=== PATIENT | male | born 1985 | race Caucasian/White ===

== ENCOUNTER → 2017-12-31 14:26 | Outpatient (CLI) | payer MEDICAID, SELFPAY ==
[2017-12-31 16:17] LABS: ALT 40 U/L (12-78); AST 19 U/L (15-37); Albumin 4.1 g/dL (3.4-5.0); Alkaline Phosphatase 79 U/L (46-116); Anion Gap 13.2 mmol/L (3-11); BUN 13 mg/dL (7-18); Bilirubin, Total 1.1 mg/dL (0.2-1.0); CO2 21.8 mmol/L (21.0-32.0); CREATININE 0.88 mg/dL (0.70-1.30); Calcium 9.1 mg/dL (8.5-10.1); Chloride 105 mmol/L (98-107); Glucose 83 mg/dL (70-100); Potassium 3.9 mmol/L (3.5-5.1); Sodium 140 mmol/L (136-145); Total Protein 7.1 g/dL (6.4-8.2)
[2018-01-02 14:49] LABS: HCV RNA Detection Quantitative Undetected IU/mL (UNDECT)
== END ==
PROVIDERS: PCP Specialist/Technologist Athletic Trainer; Visit Provider Physician Assistant Medical
DX: B18.2 Chronic viral hepatitis C (principal)
CPT/HCPCS: 36415; 80053; 87522

== ENCOUNTER 2018-11-20 14:08 | Outpatient (CLI) | payer SELFPAY ==
[2018-11-20 19:44] LABS: ALT 35 U/L (12-78); AST 19 U/L (15-37); Alkaline Phosphatase 74 U/L (46-116); Anion Gap 10.1 mmol/L (3-11); BUN 10 mg/dL (7-18); Bilirubin, Total 0.8 mg/dL (0.2-1.0); CO2 26.9 mmol/L (21.0-32.0); CREATININE 0.91 mg/dL (0.70-1.30); Calcium 9.2 mg/dL (8.5-10.1); Chloride 107 mmol/L (98-107); Glucose 95 mg/dL (70-100); Potassium 3.8 mmol/L (3.5-5.1); Sodium 144 mmol/L (136-145); Total Protein 6.7 g/dL (6.4-8.2)
[2018-11-21 14:22] LABS: HCV RNA Detection Quantitative Undetected IU/mL (UNDECT)
== END 2018-11-20 14:28 ==
PROVIDERS: PCP Specialist/Technologist Athletic Trainer; Visit Provider Physician Assistant Medical
DX: B18.2 Chronic viral hepatitis C (principal)
CPT/HCPCS: 36415; 80053; 87522

== ENCOUNTER 2021-04-28 17:27 | Inpatient (IN) | payer MEDICAID, SELFPAY ==
[2021-04-28] VITALS (16 sets, daily range): BP systolic 115–139; BP diastolic 80–100; PULSE 92–113; RESP 16–29; TEMP 36.7–37.1; O2SAT 98–100; BMI 27.5
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
[2021-04-28 17:52] LABS: Abs Immature Grans 0.06 10^3/uL (0.0-0.06); Absolute Eosinophil Count 0.03 10^3/uL (0.0-0.7); Absolute Neutrophil Count 12.78 10^3/uL (1.2-6.7); Basophils % 0.2; Eosinophils % 0.2; HCT 41.6 % (40.0-50.0); HGB 14.4 g/dL (13.5-17.5); Immature Grans % 0.4; MCH 31.3 pg (27.0-33.0); MCHC 34.6 % (32.0-36.0); MCV 90.4 fL (80-95); MPV 9.3 fL (8.0-11.0); Monocytes % 7.3; Neutrophils % 77.9; Nucleated RBC 0 %; Platelet Count 281 10^3/uL (130-400); RDW 13.2 % (11.8-14.1); RDW-SD 43.2 fL; WBC 16.41 10^3/uL (4.4-10.8)
[2021-04-28 18:05] LABS: Absolute Basophil Count 0.03 10^3/uL (0.0-0.2)
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
[2021-04-28 18:14] LABS: PTT Activated 24.1 sec (21.0-27.5); Prothrombin Time 10.5 sec (9.3-11.0)
[2021-04-28 18:19] LABS: ALT 45 U/L (16-63); AST 20 U/L (15-37); Albumin 3.9 g/dL (3.4-5.0); Alkaline Phosphatase 99 U/L (46-116); BUN 16 mg/dL (7-18); Bilirubin, Total 1.1 mg/dL (0.2-1.0); Calcium 8.5 mg/dL (8.5-10.1); Chloride 102 mmol/L (98-107); Glucose 170 mg/dL (74-106); Magnesium 1.9 mg/dL (1.8-2.4); Potassium 3.3 mmol/L (3.5-5.1); Sodium 139 mmol/L (136-145); Total Protein 6.9 g/dL (6.4-8.2)
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
[2021-04-28 18:32] LABS: Troponin I < 0.05 ng/mL (<0.06)
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
[2021-04-28] MEDS: Omnipaque 350 MG/ML 100 ML BTL IJ (18:37)
[2021-04-28] MEDS: Lactated Ringers 1,000 ML 1000 ML IV (18:49)
[2021-04-28] MEDS: ceFAZolin 2,000 MG in Normal Saline 100 ML 200 MG IVPB (18:49)
[2021-04-28 18:51] LABS: Source Nasal/Nares
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
--- NOTE | 2021-04-28 18:56 | ANES.PREOP_ITS ---
General Info Date of Service Date Performed: 04/28/21 Height: 5 ft 5 in Weight: 75 kg Body Mass Index (BMI): 27.5 Surgical Procedure: Operation Date: 04/28/21 18:35 Proposed Procedures Side Surgeon p Exploratory Laparotomy Not Applicable Camryn Calderón, Meds Allergies and Home Medications Allergies Allergy/AdvReac Type Severity Reaction Status Date / Time No Known Allergies Allergy Unverified 04/28/21 17:35 Home Medication Medication Instructions Recorded calcium carbonate [Tums 500] 500 mg PO PRN PRN 04/28/21 glecaprevir-pibrentasvir [Mavyret] 3 tab PO .QAM 04/28/21 omeprazole 20 mg PO .Q3 DAYS 04/28/21 Current Visit Medications: Current Medications Generic Name Dose Route Start Last Admin Trade Name Freq PRN Reason Stop Dose Admin Sodium Chloride 500 mls @ 0 mls/hr 04/28/21 17:42 Saline 500ml Bag IV PRN PRN As Directed Piperacillin Sod/Tazobactam 50 mls @ 100 mls/hr 04/28/21 18:52 Sod 3.375 gm/ Sodium Chloride IVPB 04/28/21 19:21 NOW ONE Protocol IV Miscellaneous Supplies 1 each 04/28/21 17:45 Iv Access IV DIRECTED CATARINO Iohexol 100 ml 04/28/21 18:45 04/28/21 18:37 Omnipaque 350 Mg/Ml 100 Ml Btl IJ 05/28/21 23:59 100 ml DIRECTED CATARINO Administration Sodium Chloride 0 ml 04/28/21 17:42 Normal Saline Flush 10 Ml Syr IVP PRN PRN Sodium Chloride 50 ml 04/28/21 18:45 04/28/21 18:37 Normal Saline 50 Ml Bag IJ 50 ml DIRECTED CATARINO Administration PFSH Medical History Medical History GERD (gastroesophageal reflux disease) Hepatitis C Mental health disorder Tobacco use disorder Surgical History Surgical History wisdom teeth removal Tobacco Smoking/Tobacco Use Status: Current every day Alcohol Alcohol Intake: current Alcohol intake frequency: a few times a month Alcohol type: beer, wine and hard liquor Substance Use Substance use: Occasionally Substance use type: marijuana Vital Signs and Lab Results Vital Signs Most Recent Vital Signs in EMR: Most Recent Vital Signs Temp Pulse Resp BP Pulse Ox 36.7 C 108 H 16 139/96 H 99 04/28/21 17:37 04/28/21 17:55 04/28/21 17:55 04/28/21 17:55 04/28/21 17:55 Lab Results Result Diagrams: 04/28/21 17:38 04/28/21 17:38 Blood Type / Crossmatch: Patient ABO/Rh Pending 04/28/21 17:38 04/28/21 Crossmatch See Detail 04/28/21 17:38 04/28/21 Complete Blood Count: White Blood Count 16.41 10^3/uL (4.4-10.8) H 04/28/21 17:38 04/28/21 Red Blood Count 4.60 10^6/uL (4.36-5.78) 04/28/21 17:38 04/28/21 Hemoglobin 14.4 g/dL (13.5-17.5) 04/28/21 17:38 04/28/21 Hematocrit 41.6 % (40.0-50.0) 04/28/21 17:38 04/28/21 Platelet Count 281 10^3/uL (130-400) 04/28/21 17:38 04/28/21 Complete Metabolic Panel: Sodium Level 139 mmol/L (136-145) 04/28/21 17:38 04/28/21 Potassium Level 3.3 mmol/L (3.5-5.1) L 04/28/21 17:38 04/28/21 Chloride Level 102 mmol/L (98-107) 04/28/21 17:38 04/28/21 Carbon Dioxide Level 23.0 mmol/L (21.0-32.0) 04/28/21 17:38 04/28/21 Blood Urea Nitrogen 16 mg/dL (7-18) 04/28/21 17:38 04/28/21 Creatinine 1.0 mg/dL (0.70-1.30) 04/28/21 17:38 04/28/21 Estimated GFR/1.73 m2 >= 60.00 (mL/min/1.73m2) 04/28/21 17:38 04/28/21 Magnesium Level 1.9 mg/dL (1.8-2.4) 04/28/21 17:38 04/28/21 Calcium Level 8.5 mg/dL (8.5-10.1) 04/28/21 17:38 04/28/21 Albumin 3.9 g/dL (3.4-5.0) 04/28/21 17:38 04/28/21 Glucose Level 170 mg/dL (74-106) H 04/28/21 17:38 04/28/21 Liver Function Panel: Alanine Aminotransferase (ALT/SGPT) 45 U/L (16-63) 04/28/21 17:38 04/28/21 Aspartate Amino Transf (AST/SGOT) 20 U/L (15-37) 04/28/21 17:38 04/28/21 Coagulation Panel: No Data to Display Cardiac Panel: Troponin I < 0.05 ng/mL (<0.06) 04/28/21 17:38 04/28/21 Arterial Blood Gas: No Data to Display Venous Blood Gas: No Data to Display Pancreas Panel: No Data to Display Thyroid Panel: No Data to Display Infectious Disease: 2 Coronavirus (COVID-19)(PCR) Pending 04/28/21 18:45 04/28/21 Coronavirus 2019 Source Nasal/Nares 04/28/21 18:45 04/28/21 Blood Cultures: No Data to Display Toxicology Panel: No Data to Display Anesthesia Assessment and Plan Anesthesia History Personal History: No History of General Anesthesia Family History: Family History Unknown Exercise Tolerance Exercise Tolerance: Metabolic Equivalents>4 Pertinent Negatives Pertinent Negatives: No Major Cardiovascular Symptoms or Complaints, No Major Pulmonary Symptoms or Complaints and No History of CVA/TIA Cardiac & Pulmonary Exam Cardiac Exam: Normal S1/S2 Heart Sounds Pulmonary Exam: Clear Bilateral Breath Sounds Implantable Cardiac Device Does patient have a Pacemaker or an ICD?: No Airway Exam Known Difficult Airway: No Mallampati Class: 3 Mouth Opening: Normal (> 3cm) Thyromental Distance: Greater than 3 cm Neck Range of Motion: Full ROM Neck Circumference: Normal Teeth Condition: Normal Dentition and Generalized Poor Dentition ASA Classification ASA Score: ASA 2 Emergency Case?: Yes NPO Status NPO Status: NPO Small Non-Fatty Meal >6 hours (Per patient alcohol an hour ago. Per patient uncertain of last meal. Stated 2pm and noon. ) Anesthesia Plan Resuscitation Status: Full Code Anesthesia Technique: General Anesthesia Airway Planned: Endotracheal Tube Monitors Used: Standard Monitors
[2021-04-28] MEDS: PIPERACILLIN/TAZO 3.375 GM in Normal Saline 50 ML IVPB (19:12)
--- NOTE | 2021-04-28 19:18 | NUR.NOTE ---
Infusion of O+ Blood initiated at 1852 hours per orders. Pt tolerating infusion well, vitals remaining in normal limits. Pt. transferred to [facility] of OR staff at 1910 with infusion continuing. Nursing Note:
[2021-04-28 20:31] LABS: COVID-19 PCR Negative (Negative)
[2021-04-28] MEDS: Lactated Ringers 1,000 ML 200 ML IV (20:49)
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
[2021-04-28] MEDS: Normal Saline 1,000 ML 125 ML IV (21:30)
[2021-04-28 21:46] LABS: Abs Immature Grans 0.09 10^3/uL (0.0-0.06); Absolute Basophil Count 0.02 10^3/uL (0.0-0.2); Absolute Eosinophil Count 0.03 10^3/uL (0.0-0.7); Absolute Lymphocyte Count 1.78 10^3/uL (1.2-3.4); Absolute Monocyte Count 0.62 10^3/uL (0.1-0.8); Absolute Neutrophil Count 12.56 10^3/uL (1.2-6.7); Basophils % 0.1; Eosinophils % 0.2; HCT 40.4 % (40.0-50.0); Immature Grans % 0.6; Lymphocytes % 11.8; MCH 30.9 pg (27.0-33.0); MCHC 34.7 % (32.0-36.0); MCV 89.2 fL (80-95); MPV 9.1 fL (8.0-11.0); Monocytes % 4.1; Neutrophils % 83.2; Nucleated RBC 0 %; Platelet Count 219 10^3/uL (130-400); RBC 4.53 10^6/uL (4.36-5.78); RDW 13.1 % (11.8-14.1); RDW-SD 42.7 fL
[2021-04-28 22:15] LABS: *AMPHETAMINES SCREEN URINE Negative (Negative); *BARBITURATES SCREEN URINE Negative (Negative); *BENZODIAZEPINES SCREEN URINE Negative (Negative); Cannabinoids THC Positive (Negative); Cocaine Screen,Urine Negative (Negative); METHADONE URINE SCREEN Negative (Negative); OPIATES URINE SCREEN Negative (Negative); Tricyclic Antidepressants Negative (Negative)
[2021-04-28] MEDS: traMADol 50 MG TAB PO (22:16)
[2021-04-28] MEDS: Enoxaparin 40 MG/0.4 ML SYR SC (22:16)
[2021-04-28 22:34] LABS: ALT 40 U/L (16-63); AST 22 U/L (15-37); Albumin 3.6 g/dL (3.4-5.0); Alkaline Phosphatase 93 U/L (46-116); Anion Gap 11.6 mmol/L (3-11); BUN 11 mg/dL (7-18); Bilirubin, Total 1.6 mg/dL (0.2-1.0); CO2 23.4 mmol/L (21.0-32.0); CREATININE 0.7 mg/dL (0.70-1.30); Calcium 8.2 mg/dL (8.5-10.1); Chloride 104 mmol/L (98-107); Glucose 109 mg/dL (74-106); Potassium 3.8 mmol/L (3.5-5.1); Sodium 139 mmol/L (136-145); Total Protein 5.9 g/dL (6.4-8.2)
[2021-04-28] MEDS: FAMOTIDINE 20 MG/50 ML BAG 200 MG IVPB (22:41)
--- NOTE | 2021-04-28 23:09 | W.ANESPOSTOP ---
Postoperative Evaluation Date, Time and Location Date Performed: 04/28/21 Time Performed: 21:00 Patient Location: Day Surgery Unit Vital Signs Most Recent Imported Vital Signs: Most Recent Vital Signs Temp Pulse Resp BP Pulse Ox 37 C 102 H 16 118/83 99 04/28/21 22:45 04/28/21 22:45 04/28/21 22:45 04/28/21 22:45 04/28/21 22:45 Pain Score Most Recent Pain Score: Most Recent Pain Score Pain Level 5 04/28/21 22:45 Assessment Mental Status: Awake (Alert & Oriented to Patient Baseline) Airway and Respiratory Function: Patent airway with normal (patient baseline) respiratory exam Cardiovascular Function: Hemodynamically Stable Hydration Status: Adequately Hydrated Nausea & Vomiting: No Nausea or Vomiting Pain: Pt. Denies Any Pain Peripheral Nerve Block: Patient did not receive a nerve block
[2021-04-29] VITALS (12 sets, daily range): BP systolic 98–115; BP diastolic 59–82; PULSE 88–109; RESP 14–18; TEMP 36.6–37.4; O2SAT 96–99
[2021-04-29] MEDS: Normal Saline Flush 10 ML SYR IVP ×3 (01:06→22:05)
[2021-04-29] MEDS: MORPHine 2 MG/ML SYR IVP (01:11)
[2021-04-29] MEDS: Ketorolac 15 MG/ML VIAL IVP ×4 (04:29→22:04)
[2021-04-29] MEDS: ACETAMINOPHEN 1,000 MG/100 ML BTL 400 MG IVPB ×4 (04:29→22:02)
[2021-04-29] MEDS: Normal Saline 1,000 ML 125 ML IV (05:06)
[2021-04-29] MEDS: LORazepam 1 MG TAB PO/SL (05:19)
[2021-04-29 06:54] LABS: Abs Immature Grans 0.03 10^3/uL (0.0-0.06); Absolute Basophil Count 0.01 10^3/uL (0.0-0.2); Absolute Lymphocyte Count 1.24 10^3/uL (1.2-3.4); Absolute Monocyte Count 0.98 10^3/uL (0.1-0.8); Basophils % 0.1; HCT 35.2 % (40.0-50.0); HGB 12.1 g/dL (13.5-17.5); Immature Grans % 0.2; MCH 30.7 pg (27.0-33.0); MCHC 34.4 % (32.0-36.0); MCV 89.3 fL (80-95); MPV 9.5 fL (8.0-11.0); Monocytes % 7.9; Neutrophils % 81.8; Nucleated RBC 0 %; Platelet Count 205 10^3/uL (130-400); RBC 3.94 10^6/uL (4.36-5.78); RDW 13.2 % (11.8-14.1); RDW-SD 43.9 fL; WBC 12.38 10^3/uL (4.4-10.8)
[2021-04-29 07:03] LABS: Absolute Neutrophil Count 10.13 10^3/uL (1.2-6.7)
[2021-04-29 07:24] LABS: Anion Gap 11.3 mmol/L (3-11); BUN 16 mg/dL (7-18); CO2 22.7 mmol/L (21.0-32.0); CREATININE 0.8 mg/dL (0.70-1.30); Calcium 7.9 mg/dL (8.5-10.1); Chloride 104 mmol/L (98-107); Glucose 154 mg/dL (74-106); Magnesium 2.1 mg/dL (1.8-2.4); Potassium 3.6 mmol/L (3.5-5.1); Sodium 138 mmol/L (136-145)
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
[2021-04-29] MEDS: Pantoprazole 40 MG VIAL IVP (09:38)
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
[2021-04-29] MEDS: ceFAZolin 1 GM/50 ML BAG IVPB ×2 (11:45→18:16)
[2021-04-29] MEDS: diphenhydrAMINE 25 MG CAP 50 MG PO (22:03)
[2021-04-29] MEDS: Enoxaparin 40 MG/0.4 ML SYR SC (22:03)
[2021-04-29] MEDS: Nicotine 21 MG/24 HR PATCH TD (22:05)
[2021-04-29] MEDS: Normal Saline 1,000 ML 50 ML IV (22:05)
[2021-04-30] VITALS (10 sets, daily range): BP systolic 112–122; BP diastolic 70–77; PULSE 71–92; RESP 16–19; TEMP 36.3–37.1; O2SAT 96–100
[2021-04-30] MEDS: Ketorolac 15 MG/ML VIAL IVP ×4 (03:06→21:12)
[2021-04-30] MEDS: ACETAMINOPHEN 1,000 MG/100 ML BTL 400 MG IVPB ×4 (03:07→21:13)
[2021-04-30] MEDS: Normal Saline Flush 10 ML SYR IVP ×3 (03:08→21:12)
[2021-04-30 05:37] LABS: Abs Immature Grans 0.02 10^3/uL (0.0-0.06); Absolute Basophil Count 0.04 10^3/uL (0.0-0.2); Absolute Eosinophil Count 0.05 10^3/uL (0.0-0.7); Absolute Lymphocyte Count 4.09 10^3/uL (1.2-3.4); Absolute Monocyte Count 0.83 10^3/uL (0.1-0.8); Absolute Neutrophil Count 4.63 10^3/uL (1.2-6.7); Basophils % 0.4; Eosinophils % 0.5; HCT 31.6 % (40.0-50.0); HGB 10.9 g/dL (13.5-17.5); Immature Grans % 0.2; Lymphocytes % 42.3; MCH 30.6 pg (27.0-33.0); MCHC 34.5 % (32.0-36.0); MCV 88.8 fL (80-95); MPV 9.9 fL (8.0-11.0); Monocytes % 8.6; Nucleated RBC 0 %; Platelet Count 159 10^3/uL (130-400); RBC 3.56 10^6/uL (4.36-5.78); RDW 13.4 % (11.8-14.1); RDW-SD 43.7 fL; WBC 9.66 10^3/uL (4.4-10.8)
[2021-04-30] MEDS: ceFAZolin 1 GM/50 ML BAG IVPB ×5 (05:46→23:51)
[2021-04-30 05:53] LABS: ALT 25 U/L (16-63); AST 14 U/L (15-37); Albumin 2.7 g/dL (3.4-5.0); Alkaline Phosphatase 63 U/L (46-116); BUN 14 mg/dL (7-18); Bilirubin, Total 0.5 mg/dL (0.2-1.0); CREATININE 0.7 mg/dL (0.70-1.30); Calcium 7.7 mg/dL (8.5-10.1); Chloride 105 mmol/L (98-107); Glucose 94 mg/dL (74-106); Potassium 3.2 mmol/L (3.5-5.1); Sodium 140 mmol/L (136-145)
[2021-04-30] MEDS: Pantoprazole 40 MG VIAL IVP (08:07)
[2021-04-30] MEDS: Potassium Chloride 20 MEQ TABCR 40 MEQ PO (11:33)
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
[2021-04-30] MEDS: LORazepam 0.5 MG TAB PO (17:56)
--- NOTE | 2021-04-30 18:45 | NUR.NOTE ---
Dr Roper spoke with pt about possibly being suicidal. Pt denies at this point. Nursing Note:
[2021-04-30] MEDS: Nicotine 21 MG/24 HR PATCH TD (21:10)
[2021-04-30] MEDS: Normal Saline 500 ML 30 ML IV (21:13)
[2021-04-30] MEDS: Enoxaparin 40 MG/0.4 ML SYR SC (21:13)
[2021-04-30] MEDS: diphenhydrAMINE 25 MG CAP 50 MG PO (21:30)
[2021-05-01] VITALS (9 sets, daily range): BP systolic 105–114; BP diastolic 61–78; PULSE 73–100; RESP 16–19; TEMP 36.6–37.2; O2SAT 97–99
[2021-05-01] MEDS: Normal Saline Flush 10 ML SYR IVP ×6 (01:30→16:13)
[2021-05-01] MEDS: Ketorolac 15 MG/ML VIAL IVP ×3 (03:19→16:13)
[2021-05-01] MEDS: ACETAMINOPHEN 1,000 MG/100 ML BTL 400 MG IVPB (03:19)
[2021-05-01] MEDS: LORazepam 0.5 MG TAB PO ×3 (03:34→16:25)
[2021-05-01] MEDS: ceFAZolin 1 GM/50 ML BAG IVPB ×2 (05:03→11:42)
[2021-05-01 05:43] LABS: HCT 33.2 % (40.0-50.0); HGB 11.3 g/dL (13.5-17.5); MCH 31.3 pg (27.0-33.0); MPV 9.5 fL (8.0-11.0); Platelet Count 166 10^3/uL (130-400); RBC 3.61 10^6/uL (4.36-5.78); RDW 13.3 % (11.8-14.1); RDW-SD 45.1 fL
[2021-05-01 05:57] LABS: ALT 22 U/L (16-63); AST 14 U/L (15-37); Albumin 2.7 g/dL (3.4-5.0); Alkaline Phosphatase 62 U/L (46-116); Anion Gap 8.4 mmol/L (3-11); BUN 12 mg/dL (7-18); Bilirubin, Total 0.3 mg/dL (0.2-1.0); CO2 25.6 mmol/L (21.0-32.0); CREATININE 0.6 mg/dL (0.70-1.30); Calcium 7.8 mg/dL (8.5-10.1); Chloride 108 mmol/L (98-107); Glucose 85 mg/dL (74-106); Potassium 3.8 mmol/L (3.5-5.1); Sodium 142 mmol/L (136-145); Total Protein 5.3 g/dL (6.4-8.2)
[2021-05-01] MEDS: Pantoprazole 40 MG VIAL IVP (08:41)
[2021-05-01] MEDS: Acetaminophen 500 MG TAB 1000 MG PO ×2 (10:13→16:13)
[2021-05-01] MEDS: Normal Saline 500 ML 30 ML IV (11:42)
--- NOTE | 2021-05-01 14:51 | W.PM.PROGNOT ---
Objective Last Vital Signs Temp 98.8 F 05/01/21 13:01 Pulse 86 05/01/21 13:01 Resp 18 05/01/21 13:01 BP 106/65 05/01/21 13:01 Pulse Ox 98 05/01/21 13:01 Laboratory Results - last 24 hr 05/01/21 05/01/21 05:35 05:35 WBC 8.40 RBC 3.61 L Hgb 11.3 L Hct 33.2 L MCV 92.0 MCH 31.3 MCHC 34.0 RDW 13.3 Plt Count 166 MPV 9.5 Sodium 142 Potassium 3.8 Chloride 108 H Carbon Dioxide 25.6 Anion Gap 8.4 BUN 12 Creatinine 0.6 L Estimated GFR/1.73 m2 >= 60.00 Glucose 85 Calcium 7.8 L Total Bilirubin 0.3 AST 14 L ALT 22 Alkaline Phosphatase 62 Total Protein 5.3 L Albumin 2.7 L PAWSS Have you Been Recently Intoxicated or Drunk Within the Last 30 days?: Yes Have you Ever Experienced Previous Episodes of Alcohol Withdrawal?: No Have you ever Experienced Withdrawal Seizures?: No Have you ever Experienced Delirium Tremens(DT)s?: No Have you ever undergone Alcohol Rehabilitation Treatment (i.e, inpt ot outpatient treatment programs)?: Yes Have you ever Experienced Blackouts?: No Have you ever Combined Alcohol with other Downers within the last 90 days?: No Have you ever Combined Alcohol with any other Substance of Abuse during the last 90 days?: No Evidence of Increased Autonomic Activity (i.e. HR>120, tremor, sweating, agitation, nausea)?: No Result: 2
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
--- NOTE | 2021-05-01 16:22 | NUR.NOTE ---
Nursing Note: At this time, this RN was giving patient medication, and patient stated I wish I didn't call 911. When asked why, he stated the thought of going home scares me. I have no one to go home to. Patient states my father thought I was going to commit suicide, but I'm not a junkie. When asked if he has had suicidal thoughts, patient stated I'm not sure. Charge nurse notified about this conversation.
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
== END 2021-05-01 18:43 | disposition home or self-care (01) | DRG 581 ==
LOC: ER 17:48 → DSU 19:12 → MS 21:05
PROVIDERS: Nurse Practitioner Acute Care; Surgery; Admitting Provider Surgery; Emergency Provider Physician Assistant; PCP Specialist/Technologist Athletic Trainer; Visit Provider Surgery
PROC: 0WJG0ZZ Inspection of Peritoneal Cavity, Open Approach (ICD-10-PCS; CPT 49000; principal; 2021-04-28 18:35)
DX: S31.111A Laceration without foreign body of abdominal wall, left upper quadrant without penetration into peritoneal cavity, initial encounter (principal); S11.81XA Laceration without foreign body of other specified part of neck, initial encounter; W26.0XXA Contact with knife, initial encounter; Z20.822 Contact with and (suspected) exposure to COVID-19; K21.9 Gastro-esophageal reflux disease without esophagitis; F17.210 Nicotine dependence, cigarettes, uncomplicated; F99 Mental disorder, not otherwise specified; B18.2 Chronic viral hepatitis C
CPT/HCPCS: 49000; 12034; 12001; 36415; 70491; 74177; 80048; 80053; 80307; 85027; 86850; 86900; 86901; 86920; 87635; 90471; 90686; 96374; 99291; 99406; J1650; 71260; 83735; 84484; 85025; 85610; 85730; 94667; J0131; J0690; J1100; J1885; J2250; J2270; J2405; J2543; J2704; J3490; P9016

== ENCOUNTER 2021-05-02 08:31 | Emergency (ER) | payer MEDICAID, SELFPAY ==
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
[2021-05-02 08:39] VITALS: BP 129/63; PULSE 94; RESP 16; TEMP 36.7; O2SAT 98
== END 2021-05-02 09:20 | disposition home or self-care (01) ==
PROVIDERS: Emergency Provider Physician Assistant
DX: R22.32 Localized swelling, mass and lump, left upper limb (principal); G89.11 Acute pain due to trauma
CPT/HCPCS: 99283